=== PATIENT | female | born 1995 | race Caucasian/White ===

== ENCOUNTER 2020-05-17 10:36 | Emergency (ER) | payer BC ==
[~2020-05-17] VITALS: Ht 160 cm; Wt 70.9 kg
[~2020-05-17 10:36] MED LIST: YASMIN 3 MG-0.01 TAB PO
[2020-05-17 10:46] VITALS: TEMP 98.9
[2020-05-17] MEDS ORDERED: ZOLOFT 100MG100 MG PO (11:11)
[2020-05-17] MEDS ORDERED: VYVANSE50 MG PO (11:11)
[2020-05-17] MEDS ORDERED: LAMICTAL200 MG PO (11:12)
[2020-05-17] MEDS ORDERED: PREDNISONE20 MG PO (12:45)
[2020-05-17] MEDS ORDERED: EPIPEN 2-PAK1 MG/ML IM (12:45)
[2020-05-17 13:14] VITALS: BP 119/70; PULSE 80
== END 2020-05-17 13:14 | disposition home or self-care (01) ==
LOC: COL.ER 10:36
DX: T78.40XA Allergy, unspecified, initial encounter (principal); T78.3XXA Angioneurotic edema, initial encounter; F41.9 Anxiety disorder, unspecified; F32.9 Major depressive disorder, single episode, unspecified
CPT/HCPCS: J1200; J7512

== ENCOUNTER 2021-05-02 22:34 | Emergency (ER) | payer BC ==
[~2021-05-02] VITALS: Ht 160 cm; Wt 71.4 kg
[~2021-05-02 22:34] MED LIST changes: +EPIPEN 2-PAK1 MG/ML IM; +LAMICTAL200 MG PO; +PREDNISONE20 MG PO; +VYVANSE50 MG PO; +ZOLOFT 100MG100 MG PO
[2021-05-02 22:41] VITALS: TEMP 98.5
[2021-05-02] MEDS ORDERED: NAPROSYN500 MG PO (23:07)
[2021-05-02 23:23] VITALS: BP 115/76; PULSE 85
== END 2021-05-02 23:23 | disposition home or self-care (01) ==
LOC: COL.ER 22:34
DX: S99.922A Unspecified injury of left foot, initial encounter (principal); F41.9 Anxiety disorder, unspecified; Z79.899 Other long term (current) drug therapy; X50.1XXA Overexertion from prolonged static or awkward postures, initial encounter; Y93.01 Activity, walking, marching and hiking